=== PATIENT | female | born 1985 | race African-American/Black ===

== ENCOUNTER 2018-01-04 22:30 | Emergency (ER) | payer OTHER ==
[~2018-01-04] VITALS: Ht 162.6 cm; Wt 95.3 kg
[2018-01-04 22:58] LABS: URINE BILIRUBIN NEGATIVE (Negative); URINE BLOOD 2+ (Negative); URINE CLARITY CLEAR; URINE COLOR YELLOW; URINE GLUCOSE-RANDOM* NEGATIVE (Negative); URINE KETONES NEGATIVE (Negative); URINE LEUKOCYTES-REFLEX NEGATIVE (Negative); URINE NITRITE-REFLEX NEGATIVE (Negative); URINE PROTEIN (DIPSTICK) TRACE (Negative); URINE SPECIFIC GRAVITY 1.015 (1.005-1.035); URINE UROBILINOGEN 0.2 E.U./dl (0.2-1.0)
[2018-01-04 23:12] LABS: ABSOLUTE NEUTROPHILS 4.3 thou/uL (1.4-8.2); BASOPHILS 3.2 % (0.0-2.0); CALCIUM 8.9 mg/dL (8.5-10.1); CREATININE 0.9 mg/dL (0.6-1.0); EOSINOPHILS 0.3 % (0.0-3.0); HEMATOCRIT 40.4 % (37.0-47.0); HEMOGLOBIN 13.9 gm/dL (12.0-15.0); MCH 31.3 pg (26.0-34.0); MCHC 34.5 g/dL (28.0-37.0); MCV 90.6 fL (80.0-100.0); MONOCYTES 3.5 % (1.0-8.0); PLATELET COUNT 207 thou/uL (150-400); POTASSIUM 3.5 mmol/L (3.5-5.1); RBC 4.46 mil/uL (4.20-5.00); RDW 13.2 % (10.5-14.5)
[2018-01-04 23:18] LABS: CASTS None Seen /LPF (None Seen); MUCUS 0-3 Light strn/LPF (None Seen); SQUAMOUS 0-3 Few /LPF (0-3)
[2018-01-04 23:19] LABS: TOTAL BILIRUBIN 0.6 mg/dL (<0.1-1.0); TOTAL PROTEIN 7.5 g/dL (6.4-8.2)
[2018-01-04 23:19] LABS: BACTERIA-REFLEX None Seen /HPF (None Seen); CRYSTALS None Seen /LPF (None Seen); URINE RBC 0-2 Rare /HPF (0-2); URINE WBC-REFLEX None Seen /HPF (0-5)
[2018-01-04] MEDS ORDERED: ZOFRAN ODT4 MG PO (23:27)
[2018-01-04] MEDS ORDERED: NORCO 5-325 TA1 EACH PO (23:27)
[2018-01-04] MEDS ORDERED: BENTYL 20 MG TA20 M1 PO (23:27)
== END 2018-01-04 23:38 | disposition home or self-care (01) ==
LOC: ER 22:30
PROVIDERS: Emergency Medicine
DX: K52.9 Noninfective gastroenteritis and colitis, unspecified (principal)

== ENCOUNTER 2018-04-12 08:20 | Emergency (ER) | payer OTHER ==
[~2018-04-12] VITALS: Ht 165.1 cm; Wt 88.5 kg
[~2018-04-12 08:20] MED LIST: BENTYL 20 MG TA20 M1 PO; NORCO 5-325 TA1 EACH PO; ZOFRAN ODT4 MG PO
[2018-04-12 09:15] LABS: URINE BLOOD 2+ (Negative); URINE CLARITY SL CLOUDY; URINE COLOR YELLOW; URINE GLUCOSE-RANDOM* NEGATIVE (Negative); URINE KETONES NEGATIVE (Negative); URINE LEUKOCYTES-REFLEX NEGATIVE (Negative); URINE NITRITE-REFLEX NEGATIVE (Negative); URINE PROTEIN (DIPSTICK) NEGATIVE (Negative); URINE SPECIFIC GRAVITY 1.025 (1.005-1.035); URINE UROBILINOGEN 0.2 E.U./dl (0.2-1.0)
[2018-04-12 09:16] LABS: ICTOTEST (BILI CONFIRMATORY) Negative (Negative); URINE BILIRUBIN NEGATIVE (Negative)
[2018-04-12 09:28] LABS: SQUAMOUS >10 Many /LPF (0-3)
[2018-04-12 09:29] LABS: AMORPHOUS URATES Moderate /LPF (None Seen); BACTERIA-REFLEX 1-9 Few /HPF (None Seen); CASTS None Seen /LPF (None Seen); URINE RBC None Seen /HPF (0-2); URINE WBC-REFLEX 0-5 Rare /HPF (0-5)
[2018-04-12 09:56] LABS: BASOPHILS 0.3 % (0.0-2.0); EOSINOPHILS 1.8 % (0.0-3.0); HEMATOCRIT 39.6 % (37.0-47.0); HEMOGLOBIN 13.8 gm/dL (12.0-15.0); LYMPHOCYTES 33.3 % (24.0-44.0); MCH 31.2 pg (26.0-34.0); MCHC 34.8 g/dL (28.0-37.0); MCV 89.6 fL (80.0-100.0); MONOCYTES 11.1 % (1.0-8.0); PLATELET COUNT 191 thou/uL (150-400); POLYS 53.5 % (36.0-66.0); RBC 4.42 mil/uL (4.20-5.00); RDW 13.4 % (10.5-14.5); WBC 5.6 thou/uL (4.0-11.0)
[2018-04-12 10:07] LABS: CALCIUM 8.8 mg/dL (8.5-10.1); CREATININE 0.9 mg/dL (0.6-1.0); POTASSIUM 3.5 mmol/L (3.5-5.1)
[2018-04-12 10:13] LABS: ALBUMIN 3.4 g/dL (3.4-5.0); TOTAL BILIRUBIN 0.5 mg/dL (<0.1-1.0); TOTAL PROTEIN 7.4 g/dL (6.4-8.2)
[2018-04-12] MEDS ORDERED: TRAMADOL 50 MG50 MG PO (11:26)
[2018-04-12] MEDS ORDERED: IBUPROFEN 600600 M1 PO (11:26)
[2018-04-12 11:41] VITALS: BP 132/91
[2018-04-13 14:13] LABS: NEISSERIA GONORRHEA-PCR Negative (Negative)
== END 2018-04-12 11:41 | disposition home or self-care (01) ==
LOC: ER 08:20
PROVIDERS: Physician Assistant
DX: D25.9 Leiomyoma of uterus, unspecified (principal); R51 Headache

== ENCOUNTER 2018-10-26 18:24 | Emergency (ER) | payer OTHER ==
[~2018-10-26] VITALS: Ht 165.1 cm; Wt 77.1 kg
[~2018-10-26 18:24] MED LIST changes: +IBUPROFEN 600600 M1 PO; +TRAMADOL 50 MG50 MG PO
[2018-10-26] MEDS ORDERED: ZOFRAN ODT4 MG PO (21:19)
[2018-10-26] MEDS ORDERED: SENNA8.6 MG PO (21:19)
[2018-10-26] MEDS ORDERED: PERCOCET 7.5-31 EACH PO (21:35)
[2018-10-26] MEDS ORDERED: PERCOCET 5-3251 EACH PO (21:36)
[2018-10-26] MEDS ORDERED: FLEXERIL PO (21:38)
[2018-10-26 22:03] VITALS: BP 102/62
== END 2018-10-26 22:04 | disposition home or self-care (01) ==
LOC: ER 18:24
DX: S32.038A Other fracture of third lumbar vertebra, initial encounter for closed fracture (principal); S32.048A Other fracture of fourth lumbar vertebra, initial encounter for closed fracture; S16.1XXA Strain of muscle, fascia and tendon at neck level, initial encounter; V47.5XXA Car driver injured in collision with fixed or stationary object in traffic accident, initial encounter; Y93.I9 Activity, other involving external motion; Y92.89 Other specified places as the place of occurrence of the external cause; Y99.8 Other external cause status

== ENCOUNTER 2019-01-11 19:31 | Emergency (ER) | payer OTHER ==
[~2019-01-11] VITALS: Ht 165.1 cm; Wt 81.7 kg
[~2019-01-11 19:31] MED LIST changes: +FLEXERIL PO; +PERCOCET 5-3251 EACH PO; +PERCOCET 7.5-31 EACH PO; +SENNA8.6 MG PO
[2019-01-11 21:22] VITALS: BP 128/84
== END 2019-01-11 21:23 | disposition home or self-care (01) ==
LOC: ER 19:31
DX: R10.2 Pelvic and perineal pain (principal); M54.5 Low back pain